=== PATIENT | female | born 1990 | race African-American/Black ===

== ENCOUNTER 2025-05-02 15:02 | Emergency (ER) | payer MEDICAID ==
[~2025-05-02] VITALS: Ht 165.1 cm; Wt 70.0 kg
[2025-05-02 15:04] VITALS: O2SAT 100
[2025-05-02 15:11] VITALS: BP 182/123; PULSE 70; RESP 18; TEMP 37.1; O2SAT 100
[2025-05-02] MEDS ORDERED: CIPHCO LEFT EAR (15:24)
== END 2025-05-02 15:31 | disposition home or self-care (01) ==
LOC: ER 15:23
DX: H92.02 Otalgia, left ear (principal); I10 Essential (primary) hypertension
CPT/HCPCS: 99283